=== PATIENT | male | born 1995 | race Caucasian/White ===

== ENCOUNTER 2019-01-31 22:07 | Emergency (ER) | payer MEDICAID ==
[~2019-01-31] VITALS: Ht 170.2 cm; Wt 73.9 kg
[2019-01-31 22:27] VITALS: BP 137/73
--- NOTE | 2019-01-31 22:29 | NUR ---
PT AMBULATED TO LOBBY.
--- NOTE | 2019-01-31 23:22 | NUR ---
PT BIB SELF C/O PUNCTURE WOUND TO RT FOOT S/P STEPPING ON DARRIAN NAIL TODAY. NO BLEEDING, APPROX 1CM CIRCULAR REDNESS NOTED TO BOTTOM OF FOOT.
--- NOTE | 2019-01-31 23:25 | NUR ---
PT AMBULATED TO BED 01
[2019-02-01 01:35] VITALS: BP 132/66
--- NOTE | 2019-02-01 01:35 | NUR ---
Patient discharged with v/s stable. Patient acting appropriatly, states 0/10 pain at this time, states ready to go home. Written and verbal after care instructions given and explained. Patient alert, oriented and verbalized understanding of instructions. Ambulatory with steady gait. All questions addressed prior to discharge. ID band removed. Patient advised to follow up with PMD. Rx of Motrin given. Patient educated on indication of medication including possible reaction and side effects. Opportunity to ask questions provided and answered.
== END 2019-02-01 01:35 | disposition home or self-care (01) ==
LOC: MED 22:07
DX: S91.331A Puncture wound without foreign body, right foot, initial encounter (principal); Z98.890 Other specified postprocedural states; W45.0XXA Nail entering through skin, initial encounter; Y93.89 Activity, other specified; Y92.89 Other specified places as the place of occurrence of the external cause; Y99.8 Other external cause status
CPT/HCPCS: 90471; 90715; 99283

== ENCOUNTER 2019-05-16 09:50 | Emergency (ER) | payer OTHER, MEDICAID ==
[~2019-05-16] VITALS: Ht 170.2 cm; Wt 70.3 kg
[2019-05-16 09:54] VITALS: BP 110/69
--- NOTE | 2019-05-16 09:58 | NUR ---
Patient ambulated to bed 4. RN evaluating patient at bedside.
--- NOTE | 2019-05-16 10:02 | NUR ---
PATIENT PRESENTS TO ED WITH C/O GENERALIZED BODY ACHES AND WEAKNESS, MIGRAINE, MID ABD PAIN X YESTERDAY. STATES N/V, PHOTOPHOBIA, PHONOPHOBIA. HX OF MIGRAINE SKIN IS PINK/WARM/DRY; LUNGS CLEAR BL; ST NOTED; TEMP 102.8F NOTED, PT DENIES ANY CP, SOB, PATIENT STATES BODYACHE 9/10 AT THIS TIME; PATIENT POSITIONED FOR COMFORT; HOB ELEVATED; BEDRAILS UP X2; BED DOWN. ER MD MADE AWARE OF PT STATUS.
[2019-05-16] MEDS ORDERED: NACL 0.9% 1,000 ML IV ONE (10:05)
[2019-05-16] MEDS ORDERED: ACETAMINOPHEN EXTRA STRENGTH 500 MG TAB PO ONE (10:05)
[2019-05-16] MEDS ORDERED: IBUPROFEN 600 MG TAB PO ONE (10:05)
[2019-05-16] MEDS ORDERED: KETOROLAC 30 MG/ML VIAL IVP ONE (10:05)
--- NOTE | 2019-05-16 10:30 | NUR ---
Patient being evaluated by physician at bedside.
--- NOTE | 2019-05-16 11:49 | NUR ---
Patient discharged with v/s stable. Written and verbal after care instructions given and explained. Patient alert, oriented and verbalized understanding of instructions. Ambulatory with steady gait. All questions addressed prior to discharge. ID band removed. Patient advised to follow up with PMD. Rx of TAMIFLU, MOTRIN, ZOFRAN given. Patient educated on indication of medication including possible reaction and side effects. Opportunity to ask questions provided and answered.
--- NOTE | 2019-05-16 11:49 | NUR ---
IV removed, catheter intact and site benign. Applied folded 4x4 gauze and tape to stop bleeding.
[2019-05-16 11:50] VITALS: BP 121/71
== END 2019-05-16 11:49 | disposition home or self-care (01) ==
LOC: MED 09:50
DX: R51 Headache (principal); M79.10 Myalgia, unspecified site; R50.9 Fever, unspecified; R11.2 Nausea with vomiting, unspecified; R42 Dizziness and giddiness; G43.909 Migraine, unspecified, not intractable, without status migrainosus; Z98.890 Other specified postprocedural states
CPT/HCPCS: 81002; 96361; 96374; 99283; J1885; J7030

== ENCOUNTER 2022-01-14 23:00 | Emergency (ER) | payer MEDICAID, OTHER ==
[~2022-01-14] VITALS: Ht 170.2 cm; Wt 90.7 kg
[2022-01-14 23:28] VITALS: BP 137/77
--- NOTE | 2022-01-14 23:35 | NUR ---
PT AMBUALATED TO BED #1
--- NOTE | 2022-01-15 00:05 | NUR ---
RECEIVED IN BED 1 WITH C/O N/V/D , ABD PAIN, GEN WEAKNESS ALL DAY
[2022-01-15] MEDS ORDERED: ACETAMINOPHEN EXTRA STRENGTH 500 MG TAB PO ONE (00:25)
[2022-01-15] MEDS ORDERED: ONDANSETRON 4 MG/2 ML VIAL IVP ONE (00:25)
[2022-01-15] MEDS ORDERED: NACL 0.9% 1,000 ML IV ONE (00:25)
[2022-01-15 00:36] LABS: BASOPHILS % (AUTO) 0.1 % (0.0-2.0); EOSINOPHILS % (AUTO) 0.1 % (0.0-4.0); HEMATOCRIT 46.3 % (36-52); HEMOGLOBIN 15.8 g/dL (12.0-18.0); LYMPHOCYTES % (AUTO) 11.2 % (20.5-51.1); MEAN CORPUSCULAR HEMOGLOBIN 31 pg (27-31); MEAN CORPUSCULAR HGB CONC 34 g/dL (33-37); MEAN CORPUSCULAR VOLUME 90.6 fL (80-94); MONOCYTES # (AUTO) 0.7 K/uL (0.8-1.0); MONOCYTES % (AUTO) 7.9 % (1.7-9.3); NEUTROPHILS # (AUTO) 7.5 K/uL (1.8-7.7); NEUTROPHILS % (AUTO) 80.7 % (42.2-75.2); PLATELET COUNT (AUTO) 308 K/uL (140-450); RED BLOOD CELL COUNT(AUTO) 5.11 MIL/uL (4.20-6.10); RED CELL DISTRIBUTION WIDTH 13.4 % (11.6-13.7); WHITE BLOOD COUNT (AUTO) 9.2 K/uL (4.8-10.8)
[2022-01-15 00:57] LABS: ALBUMIN 4.1 g/dL (3.4-5.0); ANION GAP 10.9 (8-16); CARBON DIOXIDE 28.6 mmol/L (21-32); POTASSIUM 3.5 mmol/L (3.5-5.1); TOTAL BILIRUBIN 0.5 mg/dL (0.0-1.0)
[2022-01-15] MEDS ORDERED: ONDA-188 SL (01:02)
[2022-01-15 01:15] VITALS: BP 137/77
== END 2022-01-15 01:15 | disposition home or self-care (01) ==
LOC: MED 23:00
DX: R11.2 Nausea with vomiting, unspecified (principal); R19.7 Diarrhea, unspecified
CPT/HCPCS: 36415; 80053; 85025; 96361; 96374; 99283; J2405

== ENCOUNTER 2022-10-26 01:45 | Emergency (ER) | payer OTHER ==
[~2022-10-26] VITALS: Ht 170.2 cm; Wt 92.5 kg
[~2022-10-26 01:45] MED LIST: ONDA-188 SL
[2022-10-26 01:57] VITALS: BP 131/74
[2022-10-26] MEDS ORDERED: ONDANSETRON 4 MG/2 ML VIAL IVP ONE (03:00)
[2022-10-26] MEDS: NACL 0.9% 1,000 ML IV SCH ×2 (03:10→03:15)
[2022-10-26 03:14] LABS: BASOPHILS % (AUTO) 0.3 % (0.0-2.0); EOSINOPHILS # (AUTO) 0.1 K/uL (0-0.4); EOSINOPHILS % (AUTO) 0.6 % (0.0-4.0); HEMATOCRIT 49.6 % (36-52); HEMOGLOBIN 16.8 g/dL (12.0-18.0); LYMPHOCYTES # (AUTO) 0.7 K/uL (2.0-11.5); LYMPHOCYTES % (AUTO) 7.6 % (20.5-51.1); MEAN CORPUSCULAR HEMOGLOBIN 31 pg (27-31); MEAN CORPUSCULAR HGB CONC 34 g/dL (33-37); MEAN CORPUSCULAR VOLUME 92.6 fL (80-94); MONOCYTES # (AUTO) 0.4 K/uL (0.8-1.0); MONOCYTES % (AUTO) 4.5 % (1.7-9.3); NEUTROPHILS # (AUTO) 8.5 K/uL (1.8-7.7); PLATELET COUNT (AUTO) 300 K/uL (140-450); RED BLOOD CELL COUNT(AUTO) 5.36 MIL/uL (4.20-6.10); RED CELL DISTRIBUTION WIDTH 13.5 % (11.6-13.7); WHITE BLOOD COUNT (AUTO) 9.8 K/uL (4.8-10.8)
[2022-10-26 03:27] LABS: ALBUMIN 4.5 g/dL (3.4-5.0); ANION GAP 14.2 (8-16); CREATININE 1.1 mg/dL (0.6-1.3); POTASSIUM 4.2 mmol/L (3.5-5.1); TOTAL BILIRUBIN 0.5 mg/dL (0.0-1.0)
[2022-10-26] MEDS ORDERED: ONDA-188 SL (04:21)
[2022-10-26] MEDS ORDERED: BEN10 PO (04:21)
[2022-10-26] MEDS ORDERED: FAMO-90 PO (04:21)
--- NOTE | 2022-10-26 04:55 | NUR ---
Patient discharged with v/s stable. Written and verbal after care instructions given and explained. Patient verbalized understanding. Ambulatory with steady gait. All questions addressed prior to discharge. Advised to follow up with PMD.
[2022-10-26 05:00] VITALS: BP 136/68
== END 2022-10-26 05:00 | disposition home or self-care (01) ==
LOC: MED 01:45
DX: R10.9 Unspecified abdominal pain (principal); R11.2 Nausea with vomiting, unspecified; R19.7 Diarrhea, unspecified; Z79.899 Other long term (current) drug therapy
CPT/HCPCS: 36415; 80053; 83690; 85025; 96361; 96374; 99283; J2405

== ENCOUNTER 2024-04-15 23:45 | Inpatient (IN) | payer OTHER ==
[~2024-04-15] VITALS: Ht 167.6 cm; Wt 93.0 kg
[~2024-04-15 23:45] MED LIST changes: +BEN10 PO; +FAMO-90 PO
[2024-04-15 23:56] VITALS: BP 121/70; PULSE 88; RESP 20; TEMP 98.6; O2SAT 96
[2024-04-16] MEDS: ONDANSETRON 4 MG/2 ML VIAL IVP ONE (00:36)
[2024-04-16] MEDS: KETOROLAC 30 MG/ML VIAL IVP ONE (00:36)
[2024-04-16] MEDS: NACL 0.9% 1,000 ML IV ONE ×2 (00:37→03:52)
[2024-04-16 00:48] LABS: BASOPHILS # (AUTO) 0.6 K/uL (0.00-0.22); BASOPHILS % (AUTO) 5.1 % (0.0-2.0); EOSINOPHILS # (AUTO) 0.1 K/uL (0-0.4); EOSINOPHILS % (AUTO) 0.9 % (0.0-4.0); HEMATOCRIT 41.3 % (36-52); HEMOGLOBIN 14.1 g/dL (12.0-18.0); LYMPHOCYTES # (AUTO) 1.3 K/uL (2.0-11.5); LYMPHOCYTES % (AUTO) 11.5 % (20.5-51.1); MEAN CORPUSCULAR HEMOGLOBIN 31 pg (27-31); MEAN CORPUSCULAR HGB CONC 34 g/dL (33-37); MEAN CORPUSCULAR VOLUME 91.9 fL (80-94); MONOCYTES # (AUTO) 0.8 K/uL (0.8-1.0); MONOCYTES % (AUTO) 6.8 % (1.7-9.3); NEUTROPHILS # (AUTO) 8.9 K/uL (1.8-7.7); NEUTROPHILS % (AUTO) 75.7 % (42.2-75.2); PLATELET COUNT (AUTO) 272 K/uL (140-450); RED CELL DISTRIBUTION WIDTH 12.9 % (11.6-13.7); WHITE BLOOD COUNT (AUTO) 11.7 K/uL (4.8-10.8)
[2024-04-16] MEDS: MORPHINE SULFATE 2 MG/ML SYR IVP STA (00:49)
[2024-04-16 00:58] LABS: ALBUMIN 3.9 g/dL (3.4-5.0); ANION GAP 9.3 (8-16); CALCIUM 8.9 mg/dL (8.5-10.1); CARBON DIOXIDE 32.7 mmol/L (21-32); CREATININE 1.1 mg/dL (0.6-1.3); TOTAL BILIRUBIN 0.6 mg/dL (0.0-1.0); TOTAL PROTEIN, SERUM 7.3 g/dL (6.4-8.2)
[2024-04-16] MEDS ORDERED: CIPROFLOXACIN 250 MG TAB PO ONE (02:00)
[2024-04-16] MEDS ORDERED: metroNIDAZOLE 250 MG TAB PO ONE (02:00)
[2024-04-16] MEDS ORDERED: PIPERACILLIN/TAZOBACTAM 3.375 GM VIAL IV ONE (02:05)
[2024-04-16] MEDS: PIPERACILLIN/TAZOBACTAM 3.375 GM in DEXTROSE 5% 50 ML IV ONE (02:17)
[2024-04-16 02:22] LABS: LACTIC ACID 0.6 mmol/L (0.4-2.0)
[2024-04-16 02:26] LABS: APPEARANCE,URINE CLEAR (CLEAR); BILIRUBIN,URINE NEGATIVE (NEGATIVE); BLOOD, URINE NEGATIVE (NEGATIVE); COLOR,URINE YELLOW (YELLOW); LEUKOCYTE ESTERASE ,URINE NEGATIVE (NEGATIVE); NITRITE, URINE NEGATIVE (NEGATIVE); PROTEIN,URINE NEGATIVE (NEGATIVE); UGLUCOSE NEGATIVE (NEGATIVE)
[2024-04-16] MEDS ORDERED: KCL 20 MEQ IN 100 mL PREMIX 200 ML IV PRN (03:00)
[2024-04-16] MEDS ORDERED: MAGNESIUM OXIDE 400 MG TAB PO PRN (03:00)
[2024-04-16] MEDS ORDERED: HYDROcodone/APAP 5/325 MG 1 TAB TAB PO PRN (03:00)
[2024-04-16] MEDS ORDERED: POTASSIUM CHLORIDE 10 MEQ TABER PO PRN (03:00)
[2024-04-16] MEDS ORDERED: ONDANSETRON 4 MG/2 ML VIAL IVP PRN (03:00)
[2024-04-16] MEDS ORDERED: MORPHINE SULFATE 2 MG/ML SYR IVP PRN (03:00)
[2024-04-16] MEDS ORDERED: MAG SULF 2000 MG/WATER PREMIX 50 ML IV PRN (03:00)
[2024-04-16 03:31] VITALS: PULSE 56; RESP 18; O2SAT 94
[2024-04-16] MEDS: cefTRIAXone 1,000 MG VIAL ONE (03:52)
[2024-04-16 04:00] VITALS: BP 102/54; PULSE 56; RESP 18; TEMP 97.9; O2SAT 94
[2024-04-16] MEDS: metroNIDAZOLE 500 MG/NS PREMIX 100 ML IV SCH (04:50)
[2024-04-16 08:00] VITALS: BP 103/66; PULSE 60; RESP 17; TEMP 97.7; O2SAT 98
[2024-04-16 08:24] VITALS: PULSE 63; RESP 20; O2SAT 96
[2024-04-16] MEDS: ACETAMINOPHEN 325 MG TAB PO PRN (11:25)
[2024-04-16 16:00] VITALS: BP 111/53; PULSE 71; RESP 18; TEMP 97.9; O2SAT 100
[2024-04-16 20:00] VITALS: PULSE 65; RESP 18; O2SAT 96
[2024-04-16] MEDS: MEDS-TO-BEDS MC SCH (20:23)
[2024-04-17] VITALS: BP 122/65; PULSE 65; RESP 18; TEMP 98.5; O2SAT 98
[2024-04-17 06:43] LABS: BASOPHILS % (AUTO) 0.3 % (0.0-2.0); EOSINOPHILS # (AUTO) 0.1 K/uL (0-0.4); EOSINOPHILS % (AUTO) 1.2 % (0.0-4.0); HEMATOCRIT 39.8 % (36-52); HEMOGLOBIN 13.4 g/dL (12.0-18.0); LYMPHOCYTES % (AUTO) 29.2 % (20.5-51.1); MEAN CORPUSCULAR HEMOGLOBIN 31 pg (27-31); MEAN CORPUSCULAR HGB CONC 34 g/dL (33-37); MEAN CORPUSCULAR VOLUME 92.5 fL (80-94); MONOCYTES # (AUTO) 0.5 K/uL (0.8-1.0); MONOCYTES % (AUTO) 8.1 % (1.7-9.3); NEUTROPHILS # (AUTO) 4.2 K/uL (1.8-7.7); NEUTROPHILS % (AUTO) 61.2 % (42.2-75.2); PLATELET COUNT (AUTO) 265 K/uL (140-450); WHITE BLOOD COUNT (AUTO) 6.8 K/uL (4.8-10.8)
[2024-04-17 07:15] LABS: ALBUMIN 3.1 g/dL (3.4-5.0); ANION GAP 13.1 (8-16); CALCIUM 8.5 mg/dL (8.5-10.1); CARBON DIOXIDE 27.6 mmol/L (21-32); CREATININE 1.1 mg/dL (0.6-1.3); POTASSIUM 3.7 mmol/L (3.5-5.1); TOTAL BILIRUBIN 0.5 mg/dL (0.0-1.0); TOTAL PROTEIN, SERUM 6.6 g/dL (6.4-8.2)
[2024-04-17 08:00] VITALS: BP 102/61; PULSE 69; RESP 18; TEMP 98.4; O2SAT 99
[2024-04-17] MEDS ORDERED: AMOX1TAB15 PO (12:13)
[2024-04-17] MEDS ORDERED: AMOX-999 PO (12:13)
[2024-04-17] MEDS ORDERED: ACET500T99 PO (12:14)
[2024-04-17 16:00] VITALS: BP 114/60; PULSE 69; RESP 18; TEMP 97.9; O2SAT 98
== END 2024-04-17 18:15 | disposition home or self-care (01) | DRG 244 ==
LOC: MED 23:45 → MTU 04-16 03:00
PROVIDERS: ADMIT Student in an Organized Health Care Education/Training Program; ATTEND Student in an Organized Health Care Education/Training Program
DX: K57.32 Diverticulitis of large intestine without perforation or abscess without bleeding (principal); K35.80 Unspecified acute appendicitis; D72.829 Elevated white blood cell count, unspecified; E66.9 Obesity, unspecified; E86.1 Hypovolemia; I10 Essential (primary) hypertension; K21.9 Gastro-esophageal reflux disease without esophagitis; Z68.33 Body mass index [BMI] 33.0-33.9, adult; Z79.899 Other long term (current) drug therapy
CPT/HCPCS: 36415; 80053; 81003; 83605; 83690; 83735; 85025; 87040; 87081; 96361; 96365; 96375; 99285; J0696; J1885; J2270; J2405; J2543; J3490; J7060